=== PATIENT | female | born 1970 | race Hispanic/Latino ===

== ENCOUNTER 2023-06-26 22:48 | Emergency (ER) | payer BC ==
[~2023-06-26] VITALS: Ht 160 cm; Wt 79.4 kg
[2023-06-26 22:50] VITALS: BP 112/72; PULSE 83; RESP 20
[2023-06-26] MEDS ORDERED: ERYTHROMYCIN BASE 0.5% OPHTH OINT 1 GM TUBE ONE (23:18)
[2023-06-26] MEDS ORDERED: NEO/3.5O OU (23:18)
[2023-06-26] MEDS ORDERED: ERYTHROMYCIN BASE 0.5% OPHTH OINT 1 GM TUBE OU SCH (23:30)
[2023-06-26] MEDS ORDERED: NEO/POLYMYX B SULF/DEXAMETH 3.5 GM TUBE OD SCH (23:30)
== END 2023-06-26 23:29 | disposition home or self-care (01) ==
LOC: EDH 22:48
DX: H10.9 Unspecified conjunctivitis (principal)

== ENCOUNTER 2025-05-04 00:06 | Emergency (ER) | payer BC ==
[~2025-05-04] VITALS: Ht 157.5 cm; Wt 78.0 kg
[~2025-05-04 00:06] MED LIST: NEO/3.5O OU
[2025-05-04 00:38] LABS: APPEARANCE,URINE CLOUDY (CLEAR); BILIRUBIN,URINE NEGATIVE (NEGATIVE); COLOR,URINE YELLOW (YELLOW); GLUCOSE, URINE (UA) NEGATIVE (NEGATIVE); KETONES,URINE NEGATIVE (NEGATIVE); LEUKOCYTE ESTERASE ,URINE 250 Leu/uL (NEGATIVE); NITRATE,URINE NEGATIVE (NEGATIVE); OCCULT BLOOD,URINE MODERATE (NEGATIVE); PROTEIN,URINE 30 mg/dL (NEGATIVE); UROBILINOGEN,URINE 3 mg/dL (0.2-1.0)
[2025-05-04 00:40] LABS: ADD UA MICROSCOPIC YES
[2025-05-04 00:46] LABS: MUCUS,URINE RARE LPF (None Seen); RBC,URINE 51-100 /HPF (0-1); SQUAMOUS EPITHELIAL CELL,UR MOD /HPF (0-2); WBC,URINE 51-100 /HPF (0-1); YEAST,URINE BUDDING FEW /HPF (None Seen)
[2025-05-04] MEDS ORDERED: CEPH500T PO (01:38)
--- NOTE | 2025-05-04 01:39 | ERN ---
General Chief Complaint: Urinary Frequency Stated Complaint: URINARY FREQUENCY Time Seen by MD: 00:13 Time Seen by Midlevel: 00:13 Source: patient History of Present Illness Initial Comments 54-year-old female presents to the emergency department due to frequent urination onset yesterday. Patient reports suprapubic pain that resolves after urinating. Denies any fevers, flank pain, nausea, vomiting or further associated symptoms. PMHx DM Allergies: Coded Allergies: No Known Allergies (Unverified Allergy, Unknown, 06/26/23) Home Meds Active Scripts Cephalexin (Cephalexin) 500 Mg Tablet, 1 TAB PO BID for 7 Days, #14 TAB 0 Refills Prov:JAYLEN DILLON 05/04/25 Alfonso/Polymyx B Sulf/Dexameth (Maxitrol Eye Ointment) 3.5 Gm Oint, 0.5 IN OU QID for 7 Days, #3.5 GM Prov:EVON GAMA 06/26/23 Past Medical History Past Medical History: Diabetes-Type II Past Surgical History: Hysterectomy Family History Family History: Negative Social History Social History: Negative, Lives with family ROS Dictation Constitutional: Negative for fever,chills, and weight loss Eyes: Negative for injury, pain,redness, and discharge ENT: Negative for injury,pain or swelling Cardiovascular: Negative for chest pain, palpitations, and edema Respiratory: Negative for shortness of breath, cough, and wheezing, Abdomen/GI: Negative for abdominal pain, nausea, vomiting, diarrhea, and constipation Back: Negative for injury and pain : Positive for urinary frequency Negative for bleeding or discharge MS/Extremity: Negative for injury and deformity Skin: Negative for rash, and discoloration Neuro: Negative for headache, weakness, numbness, tingling, and seizure Psych: Negative for suicide ideation, homicidal ideation, and hallucinations Physical Exam Physical Exam Dictation General: awake, alert, no acute distress Head/Face: Normocephalic, atraumatic Eyes: PERRL, EOMI, normal conjuctiva ENT: oral cavity clear, oral mucosa moist Neck: Supple, normal range of motion Cardiovascular: RRR, normal S1/S2 Respiratory: CTAB, no respiratory distress Abdomen: Soft, non-tender, non-distended, no guarding or rebound. Back: No CVA tenderness Skin: Warm, dry, normal turgor, no rash MS/Extremity: Pulses equal, no cyanosis, neurovascular intact, FROM Neuro: COAx4, GCS 15, strength 5/5, CN 2-12 intact, normal cerebellar exam, normal gait Psych: Normal behavior, mood, and affect normal Results Laboratory and Microbiology Lab and Micro Result Laboratory Tests Test 05/04/25 00:11 Urine Color YELLOW (YELLOW) Urine Appearance CLOUDY (CLEAR) H Urine pH 6.0 (5.0-8.0) Urine Specific [place] 1.031 (1.001-1.031) Urine Protein 30 mg/dL (NEGATIVE) H Urine Glucose (UA) NEGATIVE mg/dL (NEGATIVE) Urine Ketones NEGATIVE mg/dL (NEGATIVE) Urine Occult Blood MODERATE (NEGATIVE) H Urine Nitrate NEGATIVE (NEGATIVE) Urine Bilirubin NEGATIVE mg/dL (NEGATIVE) Urine Urobilinogen 3 mg/dL (0.2-1.0) H Urine Leukocyte Esterase 250 Kirti/uL (NEGATIVE) H Urine RBC 51-100 /HPF (0-1) H Urine WBC 51-100 /HPF (0-1) H Urine Squamous Epithelial Cells MOD /HPF (0-2) Urine Bacteria None /HPF (None Seen) Urine Yeast FEW /HPF (None Seen) Labs Reviewed?: Yes MDM MDM: Differential diagnosis: UTI, pyelonephritis, nephrolithiasis Rationale: 54-year-old female presents to the emergency department due to frequent urination onset yesterday. Patient reports suprapubic pain that resolves after urinating. Denies any fevers, flank pain, nausea, vomiting or further associated symptoms. PMHx DM Per physical examination patient is in no acute distress, abdomen is soft nontender, no CVA tenderness. UA obtained indicating UTI with 250 leukocyte esterase and 51-100 WBCs. Patient was administered initial dose of Rocephin in the ED and prescribed antibiotics for outpatient treatment. Patient was educated on findings and diagnosis. Advised to follow up with PCP. Return to the emergency department if any worsening symptoms. Patient verbalized understanding. Patient stable for discharge. There are no social concerns with this patient. I independently interpreted the test that were performed, results were reviewed by me and considered findings on radiology if ordered. Medical management and examination interpretation discussions were had by me with other qualified healthcare professionals as indicated for the patient's care. ED Course Orders Procedure Category Date Status Time Urinalysis Profile LAB 05/04/25 Complete 00:13 Urinalysis LAB 05/04/25 Logged W/Microscopic 00:18 Culture Urine MISBAH 05/04/25 In Process 00:40 Ceftriaxone 1g Vial PHA 05/04/25 Complete (Rocephine 1g Inj) 02:00 Current Medications Medications (Trade) Dose Ordered Sig/Sera Route PRN Reason Start Time Stop Time Status Last Admin Dose Admin Ceftriaxone Sodium (ROCEphine 1G INJ) 1 gm ONCE ONCE IVPB 05/04/25 02:00 05/04/25 01:59 DC 05/04/25 01:40 Vital Signs Date Time Temp Pulse Resp B/P (MAP) Pulse Ox O2 Delivery O2 Flow Rate FiO2 05/04/25 01:46 98.2 80 18 115/65 97 Room Air* 0 21 05/04/25 00:20 98.2 82 18 125/66 99 Room Air* 0 21 05/04/25 00:09 98.6 72 18 127/76 96 Room Air 0 DX & DISP Disposition: Discharge Departure Impression: Primary Impression: UTI (urinary tract infection) Condition: Stable Scripts Cephalexin (Cephalexin) 500 Mg Tablet 1 TAB PO BID for 7 Days, #14 TAB 0 Refills Prov: JAYLEN DILLON 05/04/25 Additional Instructions: Discharge home. Rest. Follow up with primary care DrTaryn in 24 hours. Return to the ER for any acute changes or worsening symptoms. If any medications were prescribed take as directed. Okay to continue home medications unless otherwise discussed during your visit in the emergency room today. Patient was also advised to follow-up with primary care physician in 1 to 2 days for continued monitoring. Referrals: DOROTEO JARAMILLO MD (PCP) I performed the substantive portion of the visit. I have reviewed and personally made and approve the management plan that is documented in the notes by myself or the HIMANSHU. I acknowledge full responsibility for the patient's management plan. JAYLEN DILLON May 04, 2025 01:39
[2025-05-04] MEDS: cefTRIAXone 1G VIAL IVPB ONE (01:40)
[2025-05-04 01:46] VITALS: BP 115/65; PULSE 80; RESP 18; TEMP 98.2; O2SAT 97
== END 2025-05-04 01:45 | disposition home or self-care (01) ==
LOC: EDH 00:06
DX: N39.0 Urinary tract infection, site not specified (principal); E11.9 Type 2 diabetes mellitus without complications; Z90.710 Acquired absence of both cervix and uterus; Z79.899 Other long term (current) drug therapy
CPT/HCPCS: 99284; 96374; 87086 ×2; 87186; 81001; J0696